=== PATIENT | male | born 1975 | race Caucasian/White ===

== ENCOUNTER 2017-05-22 09:22 | Emergency (ER) | payer SELFPAY ==
[2017-05-22] MEDS ORDERED: Acetaminophen/Codeine 30-300mg Tablet ONE (09:36)
[2017-05-22] MEDS ORDERED: Ketorolac Tromethamine 60 MG/2 ML VIAL ONE (09:36)
--- NOTE | 2017-05-22 10:11 | RAD ---
CHEST 1 VIEW AND LEFT RIB SERIES: HISTORY: Fall, left-sided chest pain. FINDINGS: The heart size is normal. The lungs are expanded without focal areas of consolidation, pneumothorax, or pleural effusions. There are degenerative changes in the spine. No left-sided rib fracture is i dentified. POS: [facility]
== END 2017-05-22 10:10 | disposition home or self-care (01) ==
LOC: BURERS 09:22
DX: S20.212A Contusion of left front wall of thorax, initial encounter (principal); F17.220 Nicotine dependence, chewing tobacco, uncomplicated; W17.89XA Other fall from one level to another, initial encounter
CPT/HCPCS: 94799; 96372; J1885